=== PATIENT | male | born 1995 | race Caucasian/White ===

== ENCOUNTER 2016-04-05 14:14 | Emergency (ER) | payer OTHER ==
[~2016-04-05] VITALS: Ht 142.2 cm; Wt 70.0 kg
[2016-04-05 14:34] VITALS: Ht 142.2 cm; Wt 70.0 kg
[2016-04-05] MEDS ORDERED: FAMO20TA18 GTB (14:36)
[2016-04-05] MEDS ORDERED: LACTINEX GTB (14:37)
[2016-04-05] MEDS ORDERED: CARV6.25 GTB (14:37)
[2016-04-05] MEDS ORDERED: FURO20TA3 GTB (14:38)
[2016-04-05] MEDS ORDERED: METO5TAB58 GTB (14:38)
[2016-04-05] MEDS ORDERED: BACL10TA GTB (14:39)
[2016-04-05] MEDS ORDERED: MYL80 GTB (14:40)
[2016-04-05] MEDS ORDERED: MULT473L10 GTB (14:40)
[2016-04-05] MEDS ORDERED: CHLO473M4 MM (14:41)
[2016-04-05] MEDS ORDERED: DEXT30DR5 BOTH EYES (14:42)
[2016-04-05] MEDS ORDERED: ACET-2047 GTB (14:42)
[2016-04-05] MEDS ORDERED: IBUP100O10 GTB (14:43)
[2016-04-05] MEDS ORDERED: IPRA3AMP INHALATION (14:45)
[2016-04-05] MEDS ORDERED: ALBU2.5V3 NEB (14:45)
[2016-04-05] MEDS ORDERED: MAGN400O4 GTB (14:46)
[2016-04-05] MEDS ORDERED: FERR220S13 GTB (14:46)
[2016-04-05] MEDS ORDERED: DULR PR (14:47)
[2016-04-05] MEDS ORDERED: FLEETOIL PR (14:48)
[2016-04-05] MEDS ORDERED: DIATR MEGLU/DIATRIZOATE SODIUM 120 ML BTL ONE (14:50)
--- NOTE | 2016-04-05 15:20 | RADRPT ---
PROCEDURE: XR Abdomen. CLINICAL INDICATION: Abdominal pain TECHNIQUE: Single AP view of the abdomen is available for review taken following administration of contrast via the patient's indwelling gastrostomy tube. COMPARISON: None available. FINDINGS: Contrast injected via the gastrostomy tube opacifies the stomach. No evidence of air-fluid level or distended bowel loops to suggest obstruction. No soft tissue abnormalities. No radiopaque foreign bodies. IMPRESSION: Tip of gastrostomy tube within the stomach. RPTAT: AADD .Tejinder Fair MD, MD Date Time Electronically viewed and signed by .Tejinder Fair MD, MD on 04/05/2016 15:20 .B/
--- NOTE | 2016-04-05 15:30 | ERD ---
ER Documentation Chief Complaint Date/Time DATE: 04/05/16 TIME: 15:27 Chief Complaint SENT TO [facility] FROM [facility] FOR G-TUBE REPLACEMENT HPI This is a 20-year-old male with a history of muscle dystrophy who presents to the emergency room from a longterm facility for placement of a PEG tube. This patient does have a G-tube in place and has had a leak of the G-tube. The patient was sent in for replacement. No other complaints at this time according to the patient and his carton folder at bedside ROS All systems reviewed and are negative except as per history of present illness. Medications Home Meds Reported Medications Mineral Oil* (Fleet* Mineral Oil Enema) 133 Ml Oil, 1 APPLIC NH NEEDED Y for CONSTIPATION, ENEMA 04/05/16 Bisacodyl* (Bisacodyl*) 10 Mg Supp, 10 MG NH Q24H Y for CONSTIPATION, SUPP 04/05/16 Magnesium Hydroxide* (Milk Of Magnesia*) 400 Mg/5 Ml Oral.susp, 30 ML GTB DAILY , ML 04/05/16 Ferrous Sulfate* (Ferrous Sulfate*) 220 Mg/5 Ml Solution, 220 MG GTB DAILY, ML 04/05/16 Ipratropium-Albuterol (Ipratropium-Albuterol) 0.5-3 Mg/3 Ml Ampul.neb, 3 ML INHALATION Q6 Y for WHEEZING AND SOB, #30 VIAL 04/05/16 Albuterol Sulfate* (Albuterol Sulfate* Neb) 0.083%-3 Ml Neb, 2.5 MG NEB Q2H Y for WHEEZING AND SOB, #30 VIAL 04/05/16 Ibuprofen (Ibuprofen) 100 Mg/5 Ml Oral.susp, 27.5 ML GTB Q6H Y for 27.5, ML 04/05/16 Acetaminophen* (Acetaminophen*) 650 Mg Tablet, 650 MG GTB Q4 Y for PAIN AND OR ELEVATED TEMP, #30 TAB 04/05/16 Dextran 70/Hypromellose (Artificials Tears Drops) 30 Ml Drops, 2 DROP BOTH EYES Q2HWA Y for DRY EYES, BOTTLE 04/05/16 Chlorhexidine Gluconate (Peridex) 473 Ml Mouthwash, 5 ML MM BID, BOTTLE 04/05/16 Multivitamins* (Multi-Delyn* Liq) 473 Ml Liquid, 5 ML GTB DAILY, ML 04/05/16 Simethicone* (Mylicon*) 80 Mg Tab, 80 MG GTB Q12, TAB 04/05/16 Baclofen* (Baclofen*) 10 Mg Tablet, 10 MG GTB Q8 Y for MUSCLE SPASMS, TAB 04/05/16 Metoclopramide* (Reglan*) 5 Mg Tablet, 2.5 MG GTB Q6, TAB 04/05/16 Furosemide* (Furosemide*) 20 Mg Tablet, 10 MG GTB BID, #30 TAB 04/05/16 Carvedilol* (Coreg*) 6.25 Mg Tablet, 6.25 MG GTB BID, #60 TAB HOLD FOR SBP<90, HR<60 04/05/16 Lactobacillus Acidophilus* (Lactinex*) 1 Tab Chew, 1 TAB GTB Q8, TAB 04/05/16 Famotidine* (Famotidine*) 20 Mg Tablet, 20 MG GTB DAILY, #30 TAB 04/05/16 Allergies Allergies: Coded Allergies: No Known Allergy (Unverified , 04/05/16) PMhx/Soc History of Surgery: Yes (TRACHEOSTOMY) Anesthesia Reaction: No Hx Neurological Disorder: No Hx Respiratory Disorders: Yes (VENT DEPENDENT) Hx Cardiac Disorders: Yes (HTN) Hx Psychiatric Problems: No Hx Miscellaneous Medical Probl: Yes (MUSCULAR DYSTROPHY) Hx Alcohol Use: No Hx Substance Use: No Hx Tobacco Use: No Physical Exam Vitals Vital Signs Date Time Temp Pulse Resp B/P Pulse Ox O2 Delivery O2 Flow Rate FiO2 04/05/16 14:34 98.1 84 16 123/69 98 Physical Exam Const: No acute distress Head: Atraumatic Eyes: Normal Conjunctiva ENT: Normal External Ears, Nose and Mouth. Neck: Tracheostomy, full range of motion..~ No meningismus. Resp: Clear to auscultation bilaterally Cardio: Regular rate and rhythm, no murmurs Abd: PEG tube, soft, non tender, non distended. Normal bowel sounds Skin: No petechiae or rashes Back: No midline or flank tenderness Ext: Contracted extremities no cyanosis, or edema Neur: Awake and alert Psych: Normal Mood and Affect Procedures/MDM G-tube Insertion by me: Sterile technique, local prep and lubrication, time out performed. Location: Epigastrum Device: 16 Lithuanian G-tube Technique: Ginger pressure with twisting motion. Balloon inflation Results: Gastric contents expressed. Compl: none X-ray Abdomen 1V Interpreted by me: Free Air: None Bowel Gas: Nonspecific Contrast: Intraluminal This 20-year-old male presents to the emergency room for a G-tube replacement. The patient did have a 12 Lithuanian G-tube, we only had 16 Lithuanian NG tube in the emergency room. I did place a 16 Lithuanian G-tube without difficulty. The patient has contrast which is intraluminal. No acute distress. Patient will be discharged home at this time. Departure Diagnosis: Primary Impression: Encounter for feeding tube placement Condition: Stable JAIRON HOLT DO Apr 05, 2016 15:29
[2016-04-05 18:04] VITALS: BP 124/77; PULSE 77; RESP 20
== END 2016-04-05 18:19 | disposition home or self-care (01) ==
LOC: E/R 14:14
DX: T85.598A Other mechanical complication of other gastrointestinal prosthetic devices, implants and grafts, initial encounter (principal); I10 Essential (primary) hypertension; Y73.3 Surgical instruments, materials and gastroenterology and urology devices (including sutures) associated with adverse incidents
CPT/HCPCS: 43760; 49465; 74000; Z7502; Z7610